=== PATIENT | male | born 1975 | race Caucasian/White ===

== ENCOUNTER → 2023-10-05 | Outpatient (CLI) | payer BC | LOC: M OUTALCOH 08:24 | PROVIDERS: ATTEND Psychiatry & Neurology Psychiatry | DX: F10.10 Alcohol abuse, uncomplicated (principal); Z72.0 Tobacco use ==

== ENCOUNTER 2023-10-10 10:38 | Outpatient (RCR) | payer BC | END 2023-10-19 | LOC: M OUTALCOH 10:38 | PROVIDERS: ATTEND Psychiatry & Neurology Psychiatry | DX: F10.10 Alcohol abuse, uncomplicated (principal); Z72.0 Tobacco use ==

== ENCOUNTER → 2023-11-12 | Outpatient (CLI) | payer BC | LOC: M OUTALCOH 13:02 | PROVIDERS: ATTEND Psychiatry & Neurology Psychiatry | DX: F10.10 Alcohol abuse, uncomplicated (principal); Z72.0 Tobacco use ==

== ENCOUNTER 2023-12-13 14:30 | Outpatient (RCR) | payer BC | END 2023-12-19 | LOC: M OUTALCOH 14:30 | PROVIDERS: ATTEND Psychiatry & Neurology Psychiatry | DX: F10.10 Alcohol abuse, uncomplicated (principal); Z72.0 Tobacco use ==

== ENCOUNTER 2024-01-18 12:56 | Outpatient (RCR) | payer BC | END 2024-01-19 | LOC: M OUTALCOH 12:56 | PROVIDERS: ATTEND Psychiatry & Neurology Psychiatry | DX: F10.10 Alcohol abuse, uncomplicated (principal); Z72.0 Tobacco use | CPT/HCPCS: G0397 ×2 ==

== ENCOUNTER 2024-02-01 12:58 | Outpatient (RCR) | payer BC | END 2024-02-18 | LOC: M OUTALCOH 12:58 | PROVIDERS: ATTEND Psychiatry & Neurology Psychiatry | DX: F10.10 Alcohol abuse, uncomplicated (principal); Z72.0 Tobacco use ==